=== PATIENT | female | born 1985 | race Caucasian/White ===

== ENCOUNTER 2017-05-09 12:24 | Inpatient (IN) | payer OTHER ==
[2017-05-09 12:57] VITALS: BMI 33.6
[2017-05-09] MEDS ORDERED: ELECTROLYTE-148 SOLN 500 ML IV ONE (13:30)
[2017-05-09] MEDS ORDERED: CITRIC ACID/SODIUM CITRATE 30 ML UNIT-DOSE CUP PO ONE (13:30)
[2017-05-09] MEDS ORDERED: ELECTROLYTE-148 SOLN 1,000 ML IV SCH (14:30)
--- NOTE | 2017-05-09 15:18 | PN ---
Progress Note (short form) - Note Progress Note: Attended C/S for this 31yrs old mother with normal labs; Infant delivered - clear fluid, cried soon aftyer suctioned/ drird cord 3V 9/9 Infant's PE normal for age. RNBc watch for resp distress Encourage BF/ Bonding
[2017-05-09] MEDS ORDERED: METHYLERGONOVINE MALEATE 0.2 MG/1 ML AMP IM PRN (15:35)
[2017-05-09] MEDS ORDERED: IBUPROFEN 800 MG/8 ML IJ IVPB PRN (15:35)
[2017-05-09] MEDS ORDERED: WITCH HAZEL 50% (TUCKS) 40 PAD/JAR PAD TP PRN (15:35)
[2017-05-09] MEDS ORDERED: BENZOCAINE 28 GM HEMORRHOIDAL OINTMENT PR PRN (15:35)
[2017-05-09] MEDS ORDERED: BENZOCAINE 20% 57 GM BOTTLE TP PRN (15:35)
[2017-05-09] MEDS ORDERED: oxyCODONE HCL 5 MG TABLET PO PRN (15:35)
[2017-05-09] MEDS ORDERED: OXYTOCIN 20 UNITS in 0.9% NS 1,000 ML IV SCH (15:45)
[2017-05-09] MEDS ORDERED: DEXTROSE 5%-LACTATED RINGERS 1,000 ML IV SCH (15:45)
[2017-05-09] MEDS ORDERED: ONDANSETRON 4 MG/2 ML VIAL IVPB PRN (15:49)
[2017-05-09] MEDS: CEFAZOLIN 1 GM/D5W 50 ML IVPB SCH (18:20)
--- NOTE | 2017-05-09 21:05 | HP ---
Past Medical History - Primary Care Physician PCP:: David Dominguez - Admission Chief Complaint: 39 weeks, previous 3 c/s ,request of c/s and btl History of Present Illness: 31 yo f 39 weeks, previous c/s times 3 , for repeat c/s and btl, risks discussed , History Source: Patient Limitations to Obtaining History: No Limitations - Past Medical History ...: 5 ...Para: 3 ...Term: 1 ...: 0 ...Spon : 1 ...Induced : 0 ...Multiple Gestation: 0 ...LMP: 06/16/16 ...EDC by [facility]: 05/15/17 - Past Surgical History Past Surgical History: Yes: Hx Myomectomy: No Hx Transabdominal Cerclage: No - Smoking History Smoking history: Never smoked Have you smoked in the past 12 months: No Aproximately how many cigarettes per day: 3 - Alcohol/Substance Use Hx Alcohol Use: No - Social History Usual Living Arrangement: Yes: With Spouse History of Recent Travel: No Home Medications - Allergies Allergies/Adverse Reactions: Allergies Allergy/AdvReac Type Severity Reaction Status Date / Time No Known Allergies Allergy Verified 05/09/17 12:58 - Home Medications Home Medications: Ambulatory Orders Ferrous Sulfate 1 tab PO BID 05/09/17 Vit/Iron Fumarate/FA [ Tablet] 1 tab PO DAILY 05/09/17 Review of Systems - Review of Systems Constitutional: reports: No Symptoms Eyes: reports: No Symptoms HENT: reports: No Symptoms Neck: reports: No Symptoms Cardiovascular: reports: No Symptoms Respiratory: reports: No Symptoms Gastrointestinal: reports: No Symptoms Breasts: reports: No Symptoms Reported Musculoskeletal: reports: No Symptoms Integumentary: reports: No Symptoms Neurological: reports: No Symptoms Endocrine: reports: No Symptoms Hematology/Lymphatic: reports: No Symptoms Psychiatric: reports: No Symptoms Physical Exam - Maternity Vital Signs: Vital Signs Temperature 97.5 F L 05/09/17 17:00 Pulse Rate 52 L 05/09/17 17:00 Respiratory Rate 18 05/09/17 20:00 Blood Pressure 107/65 05/09/17 17:00 O2 Sat by Pulse Oximetry (%) 100 05/09/17 16:25 Constitutional: Yes: Well Nourished, No Distress, Calm Eyes: Yes: WNL, Conjunctiva Clear, EOM Intact HENT: Yes: WNL, Atraumatic, Normocephalic Neck: Yes: WNL, Supple, Trachea Midline Cardiovascular: Yes: WNL, Regular Rate and Rhythm Breast(s): Yes: WNL - Abdominal Exam/OB Fundal Height: 40 Number of Fetuses: Single Presentation: Vertex Contractions: No Intensity: Unaware Monitor Mode: External Heart Rate Location: [facility] Category: I Accelerations: Uniform Decelerations: None - Vaginal Exam/OB Vaginal Bleediing: No Speculum Exam: No Dilatation (cm): closed Effacement (%): 0 Amniotic Membrane Status: Intact Presentation: Vertex/Position Station: -3 - Physical Exam Musculoskeletal: Yes: WNL Edema: LLE: Trace, RLE: Trace Deep Tendon Reflex Grade: Normal +2 Hemorrhage Risk Assessment - Risk Factors Medium Risk Factors: Yes: Prior , uterine surgery,or multiple laparotomies Risk Score: 1 Risk Level: Medium Risk Problem List - Problems (1) with 39 completed weeks gestation Code(s): Z3A.39 - 39 WEEKS GESTATION OF (2) Previous section Code(s): Z98.891 - HISTORY OF UTERINE SCAR FROM PREVIOUS SURGERY (3) Sterilization Code(s): Z30.2 - ENCOUNTER FOR STERILIZATION Assessment/Plan repeat c/s ,btl, rba discussed
[2017-05-10] MEDS: CEFAZOLIN 1 GM/D5W 50 ML IVPB SCH (01:29)
[2017-05-10] MEDS: SIMETHICONE 80 MG TAB.CHEW (FP) PO PRN ×4 (07:33→21:29)
[2017-05-10] MEDS: IBUPROFEN 600 MG TABLET (FP) PO PRN ×4 (07:34→21:30)
[2017-05-10] MEDS: ACETAMINOPHEN 325 MG TABLET (FP) PO PRN ×3 (07:35→19:40)
[2017-05-10 08:05] LABS: BASOPHIL 0.3 % (0-2.0); EOSINOPHIL 1.2 % (0-4.5); MCH 24.5 pg (25.7-33.7); MEAN CELL VOLUME 76.7 fl (80-96); MEAN PLT VOLUME 9.5 fl (7.5-11.1); NEUTROPHILS 71.8 % (42.8-82.8); PLATELET COUNT 244 K/MM3 (134-434); RDW 15.8 % (11.6-15.6); WHITE BLOOD COUNT 9.8 K/mm3 (4.0-10.0)
--- NOTE | 2017-05-10 08:19 | PN ---
Progress Note (short form) - Note Progress Note: pod 1 s/p repeat c/s ,BTL doing well, no excess vaginal bleeding CBC, BMP 05/10/17 06:50 Last Vital Signs Temp Pulse Resp BP Pulse Ox 98.1 F 61 18 98/58 100 05/10/17 06:00 05/10/17 06:00 05/10/17 06:00 05/10/17 06:00 05/09/17 16:25 abdomen soft, no distension, no cva incision dry ,clean no calf tenderness no excess vaginal bleeding pod 1 afebrile plan ambulate , advance diet, cbc Problem List - Problems (1) with 39 completed weeks gestation Code(s): Z3A.39 - 39 WEEKS GESTATION OF (2) Previous section Code(s): Z98.891 - HISTORY OF UTERINE SCAR FROM PREVIOUS SURGERY (3) Sterilization Code(s): Z30.2 - ENCOUNTER FOR STERILIZATION
[2017-05-10] MEDS: oxyCODONE HCL 5 MG TABLET PO PRN ×3 (08:42→21:29)
--- NOTE | 2017-05-10 09:11 | PN ---
Progress Note (short form) - Note Progress Note: 31F POD1 s/p repeat C section under spinal anesthetic with duramorph for post operative pain control. Pt doing well, reports that pain is well controlled, reports no anesthetic complications.
--- NOTE | 2017-05-10 09:15 | OP ---
DATE OF OPERATION: 05/09/2017 PREOPERATIVE DIAGNOSES: , 39 weeks, previous section, request of repeat section and tubal ligation. POSTOPERATIVE DIAGNOSES: , 39 weeks, previous section, request of repeat section and tubal ligation. PROCEDURE: Repeat low-segment transverse section and bilateral tubal ligation. SURGEON: Girish Dominguez MD STEEL SHOT HEADER OPERATOR: SHAHID Randhawa ANESTHESIA: Spinal. ANESTHESIOLOGIST: . ESTIMATED BLOOD LOSS: 500 mL. OPERATION: Patient was taken to the operating room. After adequate spinal anesthesia, abdomen and perineum were prepped and draped. Pfannenstiel abdominal skin incision was made over the previous incision. Abdominal wall was cut layer by layer and the peritoneum was exposed and incised. Upon entering the abdominal cavity, lower uterine segment was identified and uterovesical fold of peritoneum established. Bladder was pushed down. Then, with the low blade of the [place] retractor in the pelvis, a low transverse incision was made and incision extended laterally. Amniotic sac was entered. Clear fluid. Head delivered. Nasopharynx was suctioned and live baby was delivered without any difficulty. Placenta was delivered manually. Uterine cavity was cleaned of all remaining tissue. Uterine incision was closed in 2 layers, 1st layer with 0 Biosyn continuous suture, the 2nd layer with 0 Biosyn imbricating the 1st layer. Bladder flap was closed with 0 Biosyn continuous suture. Both tubes and ovaries checked, were normal. No active bleeding was seen. The right tube was grasped with Shameka clamp. Right tube was then ligated with 2-0 plain. Posterior tube was removed and endosalpinx was cauterized. The same procedure repeated for opposite tube. Then, peritoneum was closed with 0 Biosyn continuous suture. Muscles were brought together with interrupted suture of 0 Biosyn. Fascia was closed with 0 Biosyn continuous suture, subcutaneous fat interrupted suture of 0 Biosyn, and skin was closed with zachery. Patient tolerated procedure well. Left the OR in good condition. GIRISH DOMINGUEZ M.D. /[id number]
[2017-05-10] MEDS: ENOXAPARIN NA (PORCINE) 40 MG/0.4 ML DISP.SYRIN SQ SCH (10:53)
[2017-05-10] MEDS: diphenhydrAMINE HCL 25 MG CAPSULE (FP) PO PRN ×2 (14:01→17:25)
[2017-05-10] MEDS ORDERED: BISACODYL 10 MG SUPP.RECT PR PRN (15:36)
[2017-05-10] MEDS ORDERED: diphenhydrAMINE HCL 25 MG CAPSULE (FP) PO PRN (17:47)
[2017-05-11] MEDS: SIMETHICONE 80 MG TAB.CHEW (FP) PO PRN ×3 (05:20→13:01)
[2017-05-11] MEDS: oxyCODONE HCL 5 MG TABLET PO PRN ×3 (05:20→13:02)
[2017-05-11] MEDS: IBUPROFEN 600 MG TABLET (FP) PO PRN ×3 (05:20→13:02)
--- NOTE | 2017-05-11 06:24 | PN ---
Post Progress Note Post Day: 2 Type of Delivery: Repeat C/S Vital Signs: Vital Signs Temperature 99 F 05/10/17 21:20 Pulse Rate 75 05/10/17 21:20 Respiratory Rate 20 05/10/17 21:20 Blood Pressure 99/62 05/10/17 21:20 O2 Sat by Pulse Oximetry (%) 100 05/09/17 16:25 Breast Exam: Yes: Soft Uterus: Yes: Fundus Firm Incision: Yes: Dressing dry and intact Abdomen/GI: Yes: Abdomen soft Lochia: Yes: Rubra Lochia, amount: Small Extremities: Yes: Calves non-tender Perineum: Yes: Intact Activity: Ambulating - Labs Labs: CBC WBC 9.8 K/mm3 (4.0-10.0) D 05/10/17 06:50 RBC 4.50 M/mm3 (3.60-5.2) 05/10/17 06:50 Hgb 11.0 GM/dL (10.7-15.3) 05/10/17 06:50 Hct 34.5 % (32.4-45.2) 05/10/17 06:50 MCV 76.7 fl (80-96) L 05/10/17 06:50 MCH 24.5 pg (25.7-33.7) L 05/10/17 06:50 MCHC 32.0 g/dl (32.0-36.0) 05/10/17 06:50 RDW 15.8 % (11.6-15.6) H 05/10/17 06:50 Plt Count 244 K/MM3 (134-434) 05/10/17 06:50 MPV 9.5 fl (7.5-11.1) 05/10/17 06:50 Neutrophils % 71.8 % (42.8-82.8) 05/10/17 06:50 Lymphocytes % 20.3 % (8-40) D 05/10/17 06:50 Monocytes % 6.4 % (3.8-10.2) 05/10/17 06:50 Eosinophils % 1.2 % (0-4.5) 05/10/17 06:50 Basophils % 0.3 % (0-2.0) 05/10/17 06:50 Assessment/Plan oob reg diet pain control oob
[2017-05-11] MEDS: ENOXAPARIN NA (PORCINE) 40 MG/0.4 ML DISP.SYRIN SQ SCH (09:19)
[2017-05-11] MEDS: ACETAMINOPHEN 325 MG TABLET (FP) PO PRN ×2 (09:20→13:04)
[2017-05-11 12:36] VITALS: BP 121/61; PULSE 71; TEMP 98.5
[2017-05-11] MEDS ORDERED: SENNOSIDES/DOCUSATE COMBO (SENNA PLUS) TABLET (UD) PO PRN (22:00)
--- NOTE | 2017-05-14 08:48 | DS ---
Physical Exam-FREE LANCE MODEL Vital Signs: Vital Signs Temperature 98.5 F 05/11/17 09:00 Pulse Rate 71 05/11/17 09:00 Respiratory Rate 20 05/11/17 09:00 Blood Pressure 121/61 05/11/17 09:00 O2 Sat by Pulse Oximetry (%) 100 05/09/17 16:25 Constitutional: Yes: Well Nourished, No Distress, Calm Eyes: Yes: WNL, Conjunctiva Clear, EOM Intact HENT: Yes: WNL, Atraumatic, Normocephalic Neck: Yes: WNL, Supple, Trachea Midline Cardiovascular: Yes: WNL, Regular Rate and Rhythm Respiratory: Yes: WNL, Regular, CTA Bilaterally Gastrointestinal: Yes: WNL ...Rectal Exam: Yes: WNL Renal/: Yes: WNL ....Post : Yes: Uterus firm, Uterus non-tender, Slight lochia rubra Breast(s): Yes: WNL Musculoskeletal: Yes: WNL Extremities: Yes: WNL Edema: Yes Edema: LLE: Trace, RLE: Trace Integumentary: Yes: WNL Wound/Incision: Yes: Clean/Dry, Well Approximated, Lois Intact Neurological: Yes: WNL, Alert, Oriented ...Motor Strength: WNL Psychiatric: Yes: WNL, Alert, Oriented Labs: CBC, BMP 05/10/17 06:50 Delivery - Delivery Section: Repeat, Low Flap Transverse (no complication) Type of Anesthesia: Spinal Episiotomy/Laceration: None EBL (cc): 500 Delivery, Single - Stages of Labor Date of Delivery: 05/09/17 Time of Delivery: 15:02 Time Placenta Delivered: 15:03 Placenta: Yes: Expressed - Condition of Infant Special Education Secretary/Yacht Rigger Present: Yes Name: Asael Richard Gender: Female Weight: 8 lb 1 oz Position: Right, OT Total Hours ROM (Hrs/Mins): 3MIN - 1 Minute Total Score: 9 5 Minutes Total Score: 9 - Feeding Plan Initial Plan: Exclusive throughout hospitalization Discharge Summary Reason For Visit: C SECTION Procedures: Principal: repeat LST c/s Condition: Good - Instructions Diet, Activity, Other Instructions: regular diet, follow up [facility] care 1 week Referrals: David Dominguez MD [Staff Physician] - Disposition: HOME - Home Medications Comprehensive Discharge Medication List: Ambulatory Orders Ferrous Sulfate 1 tab PO BID 05/09/17 Ibuprofen [Motrin -] 600 mg PO QID #28 tablet 05/09/17 Vit/Iron Fumarate/FA [ Tablet] 1 tab PO DAILY 05/09/17
--- NOTE | 2017-05-16 10:21 | PATH ---
Surgical Pathology Report Patient Name: GARCÍA [facility]. Rec. 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 Specimen(s) Received A: PLACENTA B: FALLOPIAN TUBE RIGHT C: FALLOPIAN TUBE LEFT Clinical History 39.1 weeks' gestation, x3 SPAB x1 Final Diagnosis A. PLACENTA, DELIVERY: FOCALLY DISRUPTED THIRD TRIMESTER PLACENTA WITH SUBCHORIONIC AND INTERVILLOUS FIBRIN DEPOSITION, THREE VESSEL UMBILICAL CORD AND UNREMARKABLE PLACENTAL MEMBRANES. B. RIGHT FALLOPIAN TUBE, PARTIAL EXCISION: FULL LUMINAL PORTION OF UNREMARKABLE FALLOPIAN TUBE. C. LEFT FALLOPIAN TUBE, PARTIAL EXCISION: FULL LUMINAL PORTION OF UNREMARKABLE FALLOPIAN TUBE. Electronically Signed Justin Bro M.D. Gross Description A. The specimen is received fresh labeled placenta and is a 606 gram, 16.0 x 14.0 x 2.8 cm. placenta with attached membranes and umbilical cord. The attached membranes are mora, translucent with focal opacities and insert marginally. The umbilical cord measures 27 cm. in length and averages 1.3 cm. in diameter. The cord inserts eccentrically, 3.5 cm. to the nearest margin. No true knots or strictures are identified. Cut surface of the umbilical cord reveals 3 vessels. The surface is gu-blue with minimal fibrin deposition and appropriate caliber vessels. The maternal surface is red-brown with focal defects. Sectioning reveals red-brown, spongy parenchyma. No lesions are identified. Balloon Seller sections are submitted in three cassettes as follows: 1- membrane rolls and umbilical cord; 2-3- full thickness sections of placenta. B. Received in formalin labeled "right portion of fallopian tube," is a 1.2 cm in length portion of fallopian tube. The outer surface is mora-snider and smooth. No fimbria are present. Sectioning reveals an unremarkable lumen. Balloon Seller sections are submitted in one cassette. C. Received in formalin labeled "left portion of fallopian tube," is a 1.5 cm in length portion of fallopian tube. The outer surface is mora-snider and smooth. No fimbria are present. Sectioning reveals an unremarkable lumen. Balloon Seller sections are submitted in one cassette. 05/14/201705/14/2017
== END 2017-05-11 13:40 | disposition home or self-care (01) | DRG 540 ==
LOC: JLDR 12:24 → J3W 17:00
PROVIDERS: ADMIT Obstetrics & Gynecology; ATTEND Obstetrics & Gynecology
PROC: 10D00Z1 Extraction of Products of Conception, Low, Open Approach (ICD-10-PCS; principal; 2017-05-09)
PROC: 0U570ZZ Destruction of Bilateral Fallopian Tubes, Open Approach (ICD-10-PCS; 2017-05-09)
DX: O34.211 Maternal care for low transverse scar from previous cesarean delivery (principal); Z3A.39 39 weeks gestation of pregnancy; Z37.0 Single live birth; Z30.2 Encounter for sterilization
CPT/HCPCS: 36415; 85025; 88302-TC; 88307-TC